=== PATIENT | male | born 1960 | race Caucasian/White ===

== ENCOUNTER 2019-06-16 16:11 | Emergency (ER) | payer OTHER ==
--- NOTE | 2019-06-16 16:43 | ED ---
General Adult HPI - General Chief complaint: Extremity Injury, Lower Stated complaint: R lower leg abcess Time Seen by Provider: 06/16/19 16:15 Source: patient Mode of arrival: ambulatory Limitations: no limitations - History of Present Illness Initial comments: Patient is a 59-year-old male presenting to emergency Department with a chief complaint of right leg pain. Patient reports about a week he has noticed a small draining lesion on the anterior aspect of the right lower extremity that was initially erythematous but has gradually decreased. Patient reports he was able to drain some yellow/white pus. She also reports some tenderness and swelling in the region. Patient reports the last time he was able to drink anything was this morning. Patient states that he has a metal plate in his right lower leg from a previous fracture. Patient denies taking medication to alleviate the symptoms. Patient denies any night sweats fevers or chills. Patient denies any calf tenderness. Patient denies any chest pain, shortness of breath or coughing. - Related Data Previous Rx's Medication Instructions Recorded Acetaminophen with Codeine 1 tab PO Q4H #20 tab 10/28/15 [Tylenol w/codeine #3] Amoxicillin/Potassium Clav 1 tab PO Q12HR #20 tab 10/28/15 [Augmentin 875-125 Tablet] Naproxen [Naprosyn] 500 mg PO Q12HR #30 tab 10/28/15 Sulfamethox-Tmp 800-160Mg [Bactrim 2 tab PO Q12HR #40 tab 10/28/15 DS 800-160 mg] Sulfamethox-Tmp 800-160Mg [Bactrim 1 each PO Q12HR #20 tab 06/16/19 Ds] Allergies Allergy/AdvReac Type Severity Reaction Status Date / Time prednisone Allergy Rash/Hives Verified 06/16/19 16:16 Review of Systems ROS Statement: Those systems with pertinent positive or pertinent negative responses have been documented in the HPI. ROS Other: All systems not noted in ROS Statement are negative. Past Medical History Past Medical History: Hypertension History of Any Multi-Drug Resistant Organisms: None Reported Past Surgical History: Orthopedic Surgery Additional Past Surgical History / Comment(s): rt leg Past Psychological History: No Psychological Hx Reported Smoking Status: Former smoker Past Alcohol Use History: None Reported Past Drug Use History: None Reported General Exam Limitations: no limitations Course Vital Signs 06/16/19 16:13 Temperature 97.9 F Pulse Rate 76 Respiratory 16 Rate Blood Pressure 155/8 O2 Sat by Pulse 99 Oximetry Medical Decision Making - Medical Decision Making Patient is a 59-year-old male presenting to emergency Department with a chief complaint of leg pain. Physical examination is negative a small lesion on the anterior aspect of the right lower leg. Very mild surrounding erythema which has almost resolved according to the patient. No drainage. Bedside ultrasound performed by myself and shows no pus pockets. X-ray obtained showing no signs of osteomyelitis. Vital stable. At this time, I suspect a very mild case of cellulitis, however because of the drainage occurred went to cover for MRSA with Bactrim. Patient advised to take the prescribed medication as directed. Patient advised to follow with primary care. Strict return parameters were thoroughly discussed the patient is understanding and agreeable. Case discussed with physician. Disposition Clinical Impression: Bacterial skin infection of leg Disposition: HOME SELF-CARE Condition: Stable Instructions (If sedation given, give patient instructions): Abscess (ED) Additional Instructions: Please take prescribed medication as directed. Please follow up with primary care. Please return to emergency department if symptoms worsen. Prescriptions: Sulfamethox-Tmp 800-160Mg [Bactrim Ds] 1 each PO Q12HR #20 tab Is patient prescribed a controlled substance at d/c from ED?: No Referrals: Fahad Odonnell DO [Primary Care Provider] - 1-2 days Time of Disposition: 17:54
--- NOTE | 2019-06-16 17:41 | XR ---
EXAMINATION TYPE: XR tibia fibula RT DATE OF EXAM: 06/16/2019 COMPARISON: NONE HISTORY: Pain and swelling redness TECHNIQUE: 3 views FINDINGS: There is a plate with screws fixing fracture of the mid shaft of the tibia. There is old he aled fracture mid shaft of the fibula. I see no acute fracture nor dislocation. Knee joint and ankle joint appear intact. There is some spurring on the patella. IMPRESSION: No acute abnormality of the right tibia and fibula. No sign of osteomyelitis.
[2019-06-16 18:11] VITALS: BP 136/81; PULSE 66; RESP 18; TEMP 97.6
== END 2019-06-16 18:10 | disposition home or self-care (01) ==
LOC: EC 16:11
DX: L08.89 Other specified local infections of the skin and subcutaneous tissue (principal); L53.9 Erythematous condition, unspecified; I10 Essential (primary) hypertension; Z88.8 Allergy status to other drugs, medicaments and biological substances; Z87.891 Personal history of nicotine dependence
CPT/HCPCS: 99284

== ENCOUNTER → 2020-03-13 | Outpatient (CLI) | payer OTHER ==
--- NOTE | 2020-03-13 12:38 | NM ---
EXAMINATION TYPE: NM bone 3 phase DATE OF EXAM: 03/13/2020 COMPARISON: 06/16/2019 HISTORY: Swelling Triple phase bone scintigraphy was performed following the injection of 23 mCi Tc 99m MDP. Immediate images and 3.5 hours post injection images acquired. FINDINGS: Slight increased flow involving the right lower extremity relative to the left. Excellent slight asym metry and soft tissue uptake noted on the right. There is intense abnormal uptake involving the proximal and distal tibia. Distal tibia corresponds th e postsurgical site. Proximal tibia corresponds to the tibial tubercle. IMPRESSION: Abnormal uptake involving the tibia with soft tissue uptake and slight asymmetry could be seen with postinfectious etiology recommend tagged WBC study.
== END | disposition home or self-care (01) ==
LOC: RADNMMAIN 07:29
PROVIDERS: ATTEND Orthopaedic Surgery
DX: R94.8 Abnormal results of function studies of other organs and systems (principal)
CPT/HCPCS: 78315; A9503

== ENCOUNTER 2020-04-03 14:04 | Day surgery (SDC) | payer OTHER ==
[2020-03-29 15:11] VITALS: BMI 33.6
[~2020-04-03 14:04] MED LIST: DEXAMETHASONE SOD PHOSPHATE 10 MG/ML 1 ML VIAL IV ONE; LACTATED RINGERS 1,000 ML IV SCH; LIDOCAINE 1% (10MG/ML) FOR IV START INTRADERMA PRN; ONDANSETRON 4 MG/2 ML VIAL ONE
[2020-04-03] MEDS ORDERED: LIDOCAINE 1% INJ 10MG/ML (20 ML MDV) ONE (14:57)
[2020-04-03] MEDS ORDERED: SUCCINYLCHOLINE CHLORIDE 100 MG/5 ML SYR IV ONE (14:57)
[2020-04-03] MEDS ORDERED: MIDAZOLAM 2 MG/2 ML VIAL ONE (14:57)
[2020-04-03] MEDS ORDERED: HYDROmorphone (PF) 1 MG/ML ONE (14:57)
[2020-04-03] MEDS ORDERED: PROPOFOL 10 MG/ML 20 ML VIAL IV ONE (14:57)
[2020-04-03] MEDS ORDERED: fentaNYL (PF) 50 MCG/ML 2 ML AMP ONE (14:57)
[2020-04-03] MEDS ORDERED: ceFAZolin 1,000 MG in SODIUM CHLORIDE 0.9% 1,000 ML IRRIGATION ONE (15:34)
--- NOTE | 2020-04-03 15:34 | P.OP ---
Date of Procedure: 04/03/20 Preoperative Diagnosis: Infected hardware right tibia Postoperative Diagnosis: Infected hardware right tibia Procedure(s) Performed: Removal of hardware right tibia Anesthesia: GETA Surgeon: Lonnie Garcia Gauge Inspector #1: Smita Trammell Estimated Blood Loss (ml): 10 Pathology: other (Cultures 2) Condition: stable Disposition: PACU Indications for Procedure: This is a 51-year-old gentleman that has had an ORIF of his right tibia performed proximally 40 years ago. He has a chronic draining sinus which is failed to resolve with outpatient antibiotic treatment. After discussing the surgical nonsurgical treatment options with him at length, I recommended removal of hardware in order to help eradicate the infection. Informed consent was obtained. Operative Findings: The operative findings are consistent with infection of the hardware of the right tibia Description of Procedure: The patient was seen in the preoperative area consent was reviewed and the operative site was marked with a skin marker. Patient was then brought to the operating room and given a general anesthetic by the anesthesia department. A universal timeout was then performed confirming the patient's name, surgical site, ALLERGIES, and consent. Tourniquet was placed on the right upper thigh the right lotion reason prepped and draped in the usual sterile fashion. His prior incision was used with the skin and subcu tissue sharply incised incision was carried down to the tibial plate. Majority the plate was overgrown with bone and out osteotome and mallet was used to remove the bone. Next, after the screws were then located, the screws were then removed with appropriate screwdriver. The leg was then removed and cultures were obtained below the plate. There area was then irrigated and closed with 3-0 Vicryl followed by tyrone for the skin. Sterile dressing was applied and tourniquet was released. Patient was transferred recovery room in stable condition. Asst. NERI Fountain was required due the complexity of surgery the need for skilled operating room surgical technician.
[2020-04-03] MEDS ORDERED: BUPIVACAINE (PF) 0.25% 30 ML VIAL SQ ONE ×2 (15:36→15:44)
[2020-04-03] MEDS: HYDROmorphone 1 MG/ML 1 ML SYRINGE IVP ONE ×4 (16:04→17:06)
[2020-04-03] MEDS ORDERED: KETOROLAC 15 MG/ML 1 ML VIAL IVP ONE (16:05)
[2020-04-03 16:20] VITALS: TEMP 97.7
[2020-04-03] MEDS: fentaNYL (PF) 50 MCG/ML 2 ML AMP IVP ONE ×2 (16:20→16:32)
[2020-04-03 17:48] VITALS: RESP 16
[2020-04-03] MEDS ORDERED: HYDROcodone/APAP 7.5-325MG 1 EACH TAB ONE (17:57)
[2020-04-03] MEDS ORDERED: HYDROcodone/APAP 7.5-325MG 1 EACH TAB PO ONE (18:05)
[2020-04-03 18:20] VITALS: BP 136/83; PULSE 82
== END 2020-04-03 18:50 | disposition home or self-care (01) ==
LOC: OR 14:04
PROVIDERS: ATTEND Orthopaedic Surgery
DX: T84.622A Infection and inflammatory reaction due to internal fixation device of right tibia, initial encounter (principal); T84.84XA Pain due to internal orthopedic prosthetic devices, implants and grafts, initial encounter; I10 Essential (primary) hypertension; H91.90 Unspecified hearing loss, unspecified ear; G47.33 Obstructive sleep apnea (adult) (pediatric); Z87.81 Personal history of (healed) traumatic fracture; Z88.8 Allergy status to other drugs, medicaments and biological substances; Z79.899 Other long term (current) drug therapy; Z98.890 Other specified postprocedural states; Z90.89 Acquired absence of other organs; Z87.891 Personal history of nicotine dependence; Z99.89 Dependence on other enabling machines and devices; Z79.82 Long term (current) use of aspirin; Z79.891 Long term (current) use of opiate analgesic; Z82.49 Family history of ischemic heart disease and other diseases of the circulatory system
CPT/HCPCS: 87070; 87205; 87075; 20680; J2250; J0690 ×2; J2405; J2001; J3010; J1170; J1885; J0330; J2704

== ENCOUNTER → 2021-10-30 | Outpatient (CLI) | payer OTHER ==
--- NOTE | 2021-10-30 07:05 | MR ---
EXAMINATION TYPE: MR knee LT wo con DATE OF EXAM: 10/30/2021 COMPARISON: Outside left knee x-ray October 21, 2021 HISTORY: Left Knee Pain, Swelling x 2 months. No Known specific injury. TECHNIQUE: Multiplanar, multisequence imaging of the left knee is performed without IV contrast. FINDINGS: MEDIAL MENISCUS: Oblique increased signal posterior horn extends to central body and inferior articul ar surfaces where there is fraying identified sagittal image 14 and coronal image 24. LATERAL MENISCUS: Anterior and posterior horns are intact without tear. CRUCIATE LIGAMENTS: The anterior and posterior cruciate ligaments are intact and unremarkable. COLLATERAL LIGAMENTS: The medial collateral ligament and lateral collateral ligament complex are inta ct and unremarkable. EXTENSOR MECHANISM: Visualized quadriceps and patellar tendons are intact. Prominent spur from the an terior superior patella distal quadriceps tendon attachment is identified correlating with recent x-r ay EFFUSION: Small suprapatellar joint effusion. POPLITEAL CYST: No popliteal/patino cyst. TRICOMPARTMENT SPACES: Tricompartment joint spaces are maintained. No significant spurring is seen. CARTILAGE: Small focal fissuring medial tibiofemoral compartment distal femur cartilage on coronal im age 26 lateral aspect. No significant chondromalacia patella. BONE MARROW SIGNAL: No focal abnormal marrow signal is appreciated. OTHER: No additional significant abnormality is appreciated. IMPRESSION: 1. Full-thickness tear medial meniscus extending from posterior horn into the central body. 2. Mild tricompartment degenerative changes as detailed above. 3. Small suprapatellar joint effusion.
== END | disposition home or self-care (01) ==
LOC: RADMRIMAIN 06:00
PROVIDERS: ATTEND Orthopaedic Surgery
DX: M25.462 Effusion, left knee (principal); M17.12 Unilateral primary osteoarthritis, left knee; M23.322 Other meniscus derangements, posterior horn of medial meniscus, left knee

== ENCOUNTER → 2021-11-20 | Outpatient (CLI) | payer OTHER ==
[2021-11-20 23:24] LABS: Basophils # (A) 0.07 X 10*3/uL (0.00-0.10); Basophils % (A) 0.9 %; Eosinophils # (A) 0.35 X 10*3/uL (0.04-0.35); Eosinophils % (A) 4.5 %; HCT 43.7 % (39.6-50.0); HGB 14.2 g/dL (13.0-17.0); Immature Grans, Automated 0.3 %; Lymphocytes % (A) 24.6 %; MCH 28.4 pg (27.0-32.0); MCHC 32.5 g/dL (32.0-37.0); MCV 87.4 fL (80.0-97.0); Mean Platelet Volume 10.9 fL (9.5-12.2); Monocytes # (A) 0.52 X 10*3/uL (0.20-1.00); Monocytes % (A) 6.7 %; NRBC Per 100 WBC 0 /100 WBCS (0.0-0.0); Neutrophils # (A) 4.87 X 10*3/uL (1.80-7.70); Platelet Count 294 X 10*3/uL (140-440); RDW 12.7 % (11.5-14.5); WBC 7.73 X 10*3/uL (4.50-10.00)
[2021-11-21 00:12] LABS: Anion Gap 10.5 mmol/L (10.00-18.00); Carbon Dioxide 24.1 mmol/L (20.0-27.5); Potassium 4.9 mmol/L (3.5-5.5)
== END | disposition home or self-care (01) ==
LOC: LABPAT 15:56
PROVIDERS: ATTEND Orthopaedic Surgery
DX: Z01.812 Encounter for preprocedural laboratory examination (principal); M23.92 Unspecified internal derangement of left knee
CPT/HCPCS: 80051; 85025; 93005

== ENCOUNTER 2021-11-29 07:44 | Day surgery (SDC) | payer OTHER ==
[2021-11-27 16:00] VITALS: BMI 33.6
--- NOTE | 2021-11-28 11:55 | HP ---
HISTORY AND PHYSICAL CHIEF COMPLAINT: Left knee pain. 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 He notes he was getting up off the floor of a barn when he felt a pop in his knee. He has been having pain ever since. He is having medial pain along with locking and buckling. He is having also night symptoms. He has been taking medications and in addition has tried activity modifications, with persistence of his pain along with giving way. He denies previous problems. PAST MEDICAL HISTORY: Significant for hypertension. PAST SURGICAL HISTORY: Negative. CURRENT MEDICATIONS: Amlodipine, benazepril, Motrin. ALLERGIES: HE DENIES DRUG ALLERGIES. FAMILY HISTORY: Significant for heart disease and diabetes along with cancer. SOCIAL HISTORY: Negative for current tobacco or alcohol use. REVIEW OF SYSTEMS: Sixteen-point review of systems otherwise reviewed and is noncontributory. PHYSICAL EXAMINATION: On examination, the patient is approximately 5 feet 7 inches, 215 pounds of endomorphic habitus. HEENT exam is nonfocal. Neck is supple. He has painless passive motion of the left hip. Straight-leg raise is negative. Active motion of left knee: Minus 8 to 135 degrees of flexion. He has a mild effusion. He is tender about the medial joint line. Collaterals are stable. Bonnie is negative. Mary's elicits medial pain. His distal neurovascular exam appears intact in the left lower extremity. MRI report left knee from 10/30/2021 shows a posterior medial meniscal tear. IMPRESSION: Left knee symptomatic medial meniscal tear, acute. RECOMMENDATIONS: I talked to the patient at length regarding his condition along with treatment options. At this point he is quite symptomatic, having pain and mechanical symptoms after this acute injury. After thorough discussion, he opts to proceed with surgery. We will plan to proceed with arthroscopic evaluation with probable partial medial meniscectomy. Risks and benefits were discussed at length in layman's terms. We will likely perform that as an outpatient procedure. MMODL / IJN: [id number] /
[~2021-11-29 07:44] MED LIST changes: -DEXAMETHASONE SOD PHOSPHATE 10 MG/ML 1 ML VIAL IV ONE; -LIDOCAINE 1% (10MG/ML) FOR IV START INTRADERMA PRN; +MIDAZOLAM 2 MG/2 ML VIAL IV PRN; +ONDANSETRON 4 MG/2 ML VIAL IVP ONE; -ONDANSETRON 4 MG/2 ML VIAL ONE; +SCOPOLAMINE 1 MG/72 HR PATCH TRANSDERM ONE
[2021-11-29 08:34] VITALS: RESP 16
[2021-11-29] MEDS ORDERED: PROPOFOL 10 MG/ML 20 ML VIAL IV ONE (09:26)
[2021-11-29] MEDS ORDERED: MIDAZOLAM 2 MG/2 ML VIAL ONE (09:26)
[2021-11-29] MEDS ORDERED: LIDOCAINE 2% INJ 20 MG/ML (2 ML VIAL) ONE (09:26)
[2021-11-29] MEDS ORDERED: fentaNYL (PF) 50 MCG/ML 2 ML AMP ONE (09:26)
[2021-11-29] MEDS ORDERED: EPINEPHrine (PF) 1 ML in SODIUM CHLORIDE 0.9% IRRIGATIO 3,000 ML IRRIGATION ONE ×4 (09:40)
--- NOTE | 2021-11-29 10:10 | P.OP ---
Date of Procedure: 11/29/21 Preoperative Diagnosis: Left knee internal derangement Postoperative Diagnosis: Left knee medial meniscal tear/grade 3/4 chondral injury posterior lateral medial femoral condyle Procedure(s) Performed: Left knee arthroscopic partial medial meniscectomy/medial femoral chondrectomy/microfracture medial femoral condyle Anesthesia: MARIYAA Surgeon: Killian Farley Estimated Blood Loss (ml): 10 Pathology: none sent Condition: stable Disposition: PACU Indications for Procedure: The patient's a 61-year-old male who presents with progressive left knee pain and mechanical symptoms after previous injury despite conservative measures. A discussion of the risks and benefits of operative intervention versus continued conservative measures was made with patient. He opted to proceed with surgery. Operative risks to include infection, neurovascular injury, development of blood clots, possible incomplete resolution of symptoms, possible worsening symptoms and need for subsequent procedures was discussed. Informed consent was obtained. Operative Findings: As below Description of Procedure: The patient was brought to the operating room, and after induction of general anesthesia examined the left knee. Collaterals were stable, Bonnie was negative, and posterior drawer was negative. The left lower extremity was prepped and draped in a normal fashion. A superior lateral portal was made through a 3 mm skin incision superior and lateral to the patella. This was used for outflow. A lateral portal was made through a 5 mm vertical skin incision lateral to the patella tendon above the joint line. Diagnostic arthroscopy was performed. On inspection of the medial compartment, a complex tear involving the posterior to middle one third of the medial meniscus was noted in the white- white junction. This was debrided back to a stable base with straight baskets and a motorized shaver. A grade 3/4 chondral injury was noted involving the posterior lateral portion of the medial femoral condyle. There was a loose ch ondral flap that was debrided back to stable base with a motorized shaver. Microfracture was performed with a power pick breeching the subchondral surface down to the bone marrow elements. On inspection of the notch, the anterior cruciate ligament appeared to be intact. On inspection of the lateral compartment, no significant cartilage or meniscal pathology was noted. On inspection of the patellofemoral articulation, there was some chondral fibrillation however no loose chondral fragments. The gutters were clear debris. The knee was then thoroughly irrigated. The portals were closed with Steri-Strips. A sterile dressing was applied in addition to a compression stocking. The patient was awoken from general anesthesia and transferred to recovery room in good condition. Blood loss was estimated at 10 mL. No complications were incurred.
[2021-11-29] MEDS: HYDROmorphone 0.5 MG/0.5 ML SYRINGE IVP PRN ×4 (10:16→10:42)
[2021-11-29 10:27] VITALS: TEMP 97.2
[2021-11-29] MEDS ORDERED: KETOROLAC 15 MG/ML 1 ML VIAL IVP ONE (10:42)
[2021-11-29] MEDS ORDERED: LACTATED RINGERS 1,000 ML IV ONE (11:12)
[2021-11-29 11:48] VITALS: BP 138/85; PULSE 86
== END 2021-11-29 11:58 | disposition home or self-care (01) ==
LOC: OR 07:44
PROVIDERS: ATTEND Orthopaedic Surgery
DX: S83.207A Unspecified tear of unspecified meniscus, current injury, left knee, initial encounter (principal); X50.1XXA Overexertion from prolonged static or awkward postures, initial encounter; I10 Essential (primary) hypertension; Z82.49 Family history of ischemic heart disease and other diseases of the circulatory system; Z83.3 Family history of diabetes mellitus; Z80.9 Family history of malignant neoplasm, unspecified; G47.33 Obstructive sleep apnea (adult) (pediatric); Z87.891 Personal history of nicotine dependence; Z79.1 Long term (current) use of non-steroidal anti-inflammatories (NSAID); Z79.899 Other long term (current) drug therapy; Z88.8 Allergy status to other drugs, medicaments and biological substances
CPT/HCPCS: 29881; 29879; J2250; J0690; J2405; J0171; J3010; J1885; J2704; J1170; J2001

== ENCOUNTER → 2023-04-02 | Outpatient (CLI) | payer BC ==
--- NOTE | 2023-04-02 09:08 | CTL ---
EXAMINATION TYPE: CT Low Dose Lung DATE OF EXAM: 04/02/2023 6:51 AM CLINICAL INDICATION:Male, 62 years old with history of Z12.2 ENCNTR SCREEN FOR MALIGNANT NEOPLAS Z87 .891; screening for malignant neoplasm , history of tobacco use. COMPARISON: None. TECHNIQUE: Multiple axial non-contrast scans were obtained from approximately the lung apices through the upper abdomen. Coronal and sagittal reformatted images were obtained. Low dose technique was uti lized. CT DLP: 132.6 mGycm, Automated exposure control for dose reduction was used. CT Contrast: Contrast used: None Oral contrast used: None FINDINGS: ======== Lack of intravenous contrast and low dose technique limits the evaluation of the vascular and soft ti ssue structures. LUNGS: No evidence of pulmonary fibrosis. No evidence of focal consolidation, pneumothorax or pleural effusion. Mild centrilobular emphysema. Nodules: RUL: Posterior peripheral nodule measuring 6 mm image 77 series 4. 5 mm image 101 RML: 6 mm image 157. 5 mm Intrafissural lymph node image 152. 7 mm image 133 RLL: None. DAVID: 4 mm image 85 LLL: Intrafissural lymph nodes image 144, 155, and 194. AIRWAY: Patent and unremarkable. HEART: Size within normal limits. Mild to moderate desiccation of the coronary arteries. MEDIASTINUM: Right low paratracheal prominent lymph node measuring up to 11 mm in short axis. VASCULATURE: No aortic aneurysm. MUSCULOSKELETAL: No acute osseous abnormalities SOFT TISSUES/LYMPH NODES: Unremarkable. LOWER NECK: No significant findings. UPPER ABDOMEN: Diffuse low-attenuation to the liver parenchyma. IMPRESSION: 1. Multiple pulmonary nodules, short-term follow-up in 6 months recommended. 2. Borderline enlarged right low paratracheal lymph node. Attention follow-up imaging. 3. Mild emphysema changes. 4. Hepatic steatosis. CT LUNG RAD AND CT CHEST RECOMMENDATION: Lung-Rad 3 Probably Benign: 6 month follow-up LDCT. S Modifier (other clinically significant findings): None Recommend smoking cessation (if current smoker), or continuation of smoking cessation (if prior smoke r). Annual screening for lung cancer with low-dose computed tomography is recommended in adults ages 55 to 77 years who have a 30 pack-year smoking history and currently smoke or have quit within the pa st 15 years. Screening should be discontinued once a person has not smoked for 15 years or develops a health problem that substantially limits life expectancy or the ability or willingness to have curat cecil lung surgery. Lung rads 2021 [email or web address]
== END | disposition home or self-care (01) ==
LOC: RADCTMAIN 06:32
PROVIDERS: ATTEND Family Medicine
DX: Z12.2 Encounter for screening for malignant neoplasm of respiratory organs (principal); J43.9 Emphysema, unspecified; R91.8 Other nonspecific abnormal finding of lung field; K76.0 Fatty (change of) liver, not elsewhere classified; Z87.891 Personal history of nicotine dependence
CPT/HCPCS: 71271

== ENCOUNTER → 2023-06-12 | Outpatient (CLI) | payer BC ==
[2023-06-13 02:08] LABS: ALT 25 U/L (10-49); AST 18 U/L (14-35); Blood Urea Nitrogen 25.6 mg/dL (9.0-27.0); Calcium 9.8 mg/dL (8.7-10.3); Carbon Dioxide 26.6 mmol/L (21.6-31.8); Chloride 101 mmol/L (96-109); Glucose 105 mg/dL (70-110); Potassium 4.1 mmol/L (3.5-5.5); Sodium 139 mmol/L (135-145)
== END | disposition home or self-care (01) ==
LOC: LABWHC1 16:22
PROVIDERS: ATTEND Student in an Organized Health Care Education/Training Program
DX: I10 Essential (primary) hypertension (principal)
CPT/HCPCS: 36415; 80048; 84450; 84460

== ENCOUNTER → 2024-02-26 | Outpatient (CLI) | payer OTHER ==
[2024-02-26 10:28] LABS: ALT 32 U/L (10-49); AST 21 U/L (14-35); Albumin 4.5 g/dL (3.8-4.9); Alkaline Phosphatase 74 U/L (41-126); BUN/Creat Ratio 21.44 Ratio (12.00-20.00); Blood Urea Nitrogen 19.3 mg/dL (9.0-27.0); Calcium 9.8 mg/dL (8.7-10.3); Carbon Dioxide 28.9 mmol/L (21.6-31.8); Chloride 102 mmol/L (96-109); Chol/HDL Ratio 2.71 Ratio; Globulin 2.5 g/dL (1.6-3.3); Glucose 110 mg/dL (70-110); LDL Cholesterol,Calculated 33.2 mg/dL (0.0-131.0); Potassium 4.8 mmol/L (3.5-5.5); Sodium 141 mmol/L (135-145); Total Bilirubin 0.3 mg/dL (0.3-1.2)
[2024-02-26 10:45] LABS: HCT 44.2 % (39.6-50.0); HGB 14.9 g/dL (13.0-17.0); MCH 29.3 pg (27.0-32.0); MCHC 33.7 g/dL (32.0-37.0); Mean Platelet Volume 10.7 FL (9.5-12.2); NRBC Per 100 WBC 0 X 10*3/uL (0.00-0.01); Platelet Count 280 X 10*3/uL (140-440); RBC 5.08 X 10*6/uL (4.40-5.60); RDW 12.5 % (11.5-14.5)
[2024-02-26 11:42] LABS: NT-Pro-B-Type Natriuretic Pept <36 pg/mL (0-125)
== END | disposition home or self-care (01) ==
LOC: LABWHC1 07:58
PROVIDERS: ATTEND Student in an Organized Health Care Education/Training Program
DX: Z00.00 Encounter for general adult medical examination without abnormal findings (principal); I50.9 Heart failure, unspecified; E11.9 Type 2 diabetes mellitus without complications; E78.5 Hyperlipidemia, unspecified
CPT/HCPCS: 36415; 80053; 80061; 83036; 83880; 85027

== ENCOUNTER 2025-01-19 07:03 | Day surgery (SDC) | payer OTHER ==
[2025-01-19] MEDS: IV FLUID CONTINUATION 1,000 ML IV ONE (07:16)
[2025-01-19] MEDS ORDERED: LIDOCAINE 1% (10MG/ML) FOR IV START INTRADERMA PRN (07:17)
[2025-01-19] MEDS ORDERED: LACTATED RINGERS 1,000 ML IV SCH (07:17)
[2025-01-19 07:34] LABS: Glucose,Whole Blood 114 mg/dL (70-110)
[2025-01-19 07:41] VITALS: RESP 16; TEMP 97.5
[2025-01-19] MEDS ORDERED: LIDOCAINE 1% INJ 10MG/ML (20 ML MDV) ONE (07:57)
[2025-01-19] MEDS ORDERED: PROPOFOL 10 MG/ML 20 ML VIAL IV ONE (07:57)
--- NOTE | 2025-01-19 08:20 | P.PCN ---
Date of Procedure: 01/19/25 Preoperative Diagnosis: Screening Postoperative Diagnosis: Rectal polyp Procedure(s) Performed: Colonoscopy with forcep polypectomy Anesthesia: MAC Surgeon: Marlon Quevedo Pathology: other (Rectal polyp) Condition: stable Disposition: same day Indications for Procedure: 64-year-old male presents today for screening colonoscopy. He has never had colonoscopy previously. Denies blood in his stool. No family history of colon cancer. Operative Findings: Rectal polyp Description of Procedure: The patient was brought to the endoscopy suite and placed in left lateral decubitus position and adequate sedation was achieved using conscious sedation. Digital rectal exam was performed and mild internal hemorrhoids were palpated. An endoscope was then placed in the rectum and advanced to the cecum as identified by landmarks including the appendiceal orifice and the ileocecal valve. The prep was good. The colonoscope was then slowly withdrawn, examining for any mucosal abnormalities. The cecum, ascending, transverse, descending and sigmoid colon were visualized adequately. There were no large neoplastic lesions noted throughout the colon. No significant amount of diverticulosis. Small rectal polyp was noted and this was removed with forcep polypectomy. Hemostasis was maintained. Retroflexion was performed in the rectum and internal hemorrhoids. Excess air was removed, the colonoscope withdrawn and the procedure terminated. The patient was then transferred to the recovery unit in stable condition. Repeat colonoscopy should be performed in 5 years.
[2025-01-19 08:49] VITALS: BP 139/82; PULSE 66
== END 2025-01-19 09:10 | disposition home or self-care (01) ==
LOC: ORWHC2ENDO 07:03
PROVIDERS: ATTEND Surgery
DX: Z12.11 Encounter for screening for malignant neoplasm of colon (principal); K62.1 Rectal polyp
CPT/HCPCS: 88305; 45380; J2003; J2704